=== PATIENT | female | born 1995 | race African-American/Black ===

== ENCOUNTER 2019-03-27 12:10 | Inpatient (IN) ==
[2019-03-27] MEDS ORDERED: LACTATED RINGERS 1,000 ML IV ONE (12:18)
[2019-03-27] MEDS ORDERED: OXYTOCIN/LR 20 UNIT/1,000 ML BAG IV SCH (12:30)
[2019-03-27] MEDS ORDERED: ONDANSETRON 4 MG/2 ML VIAL IV PRN (12:31)
[2019-03-27] MEDS ORDERED: BUTORPHANOL 2 MG/ML VIAL IV PRN (12:31)
[2019-03-27] MEDS ORDERED: MEPERIDINE 50 MG/1 ML VIAL IV PRN (12:31)
[2019-03-27 12:52] LABS: Basophils % 0.2 % (0.0-0.8); Eosinophils # 0.1 10*3/uL (0.0-0.87); Eosinophils % 0.4 % (0.00-10.9); Hematocrit 39.1 VOL% (35.7-47.0); Hemoglobin 12.6 GM/DL (12.0-16.0); Immature Granulocytes % 1.7 %; Immature Granulocytes Absolute 0.23 #; Lymphocytes # 1.5 10*3/uL (1.4-4.0); Lymphocytes % 10.5 % (21.3-54.2); Mean Corpuscular HGB Conc 32.2 GM/DL (32-36); Mean Corpuscular Volume 89.9 FL (87-102); Mean Platelet Volume 12.2 FL (9.6-12.0); Monocytes % 5.5 % (1.7-12.7); Neutrophils % 81.7 % (38.7-73.9); Platelet Count 160 T/CUMM (130-400); Red Blood Count 4.35 MC/CUMM (3.8-5.5); Red Cell Distribution Width 14.2 % (9.3-17.3); White Blood Count 13.9 T/CUMM (4-12)
[2019-03-27] MEDS ORDERED: ONDANSETRON 4 MG/2 ML VIAL IV ONE (12:56)
[2019-03-27] MEDS ORDERED: FAMOTIDINE 20 MG/2 ML VIAL IV ONE (12:56)
[2019-03-27] MEDS ORDERED: hydrOXYzine HCL 25 MG/1 ML VIAL IM PRN (12:56)
[2019-03-27] MEDS ORDERED: ePHEDrine 50 MG/ML AMP IV PRN (12:56)
[2019-03-27] MEDS ORDERED: PROMETHAZINE 25 MG/1 ML VIAL IM ONE (12:56)
[2019-03-27] MEDS ORDERED: NALOXONE 0.4 MG/ML VIAL IV PRN (12:56)
[2019-03-27] MEDS ORDERED: CITRIC ACID/SODIUM CITRATE 30 ML UDCUP PO ONE (12:56)
[2019-03-27] MEDS ORDERED: diphenhydrAMINE 50 MG/1 ML VIAL IV PRN ×2 (12:56)
[2019-03-27] MEDS ORDERED: LACTATED RINGERS 1,000 ML IV SCH (13:00)
[2019-03-27] MEDS: LACTATED RINGERS 1,000 ML IV SCH ×2 (13:26→19:51)
[2019-03-27] MEDS: fentaNYL 2 MCG/ROPIV 0.2% EPID 100 ML EPIDURAL SCH ×2 (14:11→21:40)
[2019-03-27 15:57] LABS: Apearance,Urine CLEAR (Clear); Bacteria,Urine Occasional /HPF (Few); Bilirubin,Urine Negative (Negative); Blood, Urine Negative (Negative); Glucose,Urine (UA) Negative (Negative); Ketones,Urine Negative (Negative); Mucus,Urine Occasional /LPF (Occasional); Nitrite,Urine Negative (Negative); Protein,Urine Negative; RBC,Urine 5 /HPF (0-4); Squamous Epithelial Cell,Urine Occasional /HPF (0-10); Urine Color Straw (Yellow); Urine Specific Gravity 1.013 (1.001-1.035); Urine Urobilinogen < 2.0 EU/DL (0.2-1.0); WBC,Urine 2 /HPF (0-6)
[2019-03-27] MEDS ORDERED: CARBOPROST TROMETHAMINE 250 MCG/ML AMP IM ONE (23:50)
[2019-03-27] MEDS ORDERED: TRANEXAMIC ACID 1,000 MG/10 ML VIAL ONE (23:50)
[2019-03-27] MEDS ORDERED: OXYTOCIN/LR 20 UNIT/1,000 ML BAG IV ONE (23:50)
[2019-03-27] MEDS ORDERED: miSOPROStoL 200 MCG TABLET ONE (23:50)
[2019-03-27] MEDS ORDERED: METHYLERGONOVINE 0.2 MG/1 ML AMP ONE (23:50)
[2019-03-27] MEDS ORDERED: SODIUM CHLORIDE 0.9% 0 ML IV ONE (23:51)
[2019-03-28] MEDS ORDERED: ACETAMINOPHEN 325 MG TABLET PO PRN (00:34)
[2019-03-28] MEDS ORDERED: oxyCODONE/ACETAMINOPHEN 5-325 MG TABLET PO PRN (00:34)
[2019-03-28] MEDS ORDERED: BISACODYL 10 MG SUPP RECTAL PRN (00:34)
[2019-03-28] MEDS ORDERED: DIPH/TET/ACEL PERT BOOSTER VACCINE 0.5 ML VIAL IM ONE (00:34)
[2019-03-28] MEDS ORDERED: OXYTOCIN/LR 20 UNIT/1,000 ML BAG IV ONE (00:34)
[2019-03-28] MEDS ORDERED: LANOLIN 50% CREAM 0.3 OZ TUBE TOP PRN (00:34)
[2019-03-28] MEDS ORDERED: BENZOCAINE 20%/MENTHOL 0.5% SPRAY 56 GM CAN TOP PRN (00:34)
[2019-03-28] MEDS ORDERED: WITCH HAZEL PADS 100/JAR TOP PRN (00:34)
[2019-03-28] MEDS ORDERED: RHO(D) IMMUNE GLOBULIN 300 MCG SYRINGE IM ONE (00:34)
[2019-03-28] MEDS ORDERED: HYDROCORTISONE 2.5% RECTAL CREAM 30 GM TUBE TOP PRN (00:34)
[2019-03-28] MEDS ORDERED: ONDANSETRON 4 MG/2 ML VIAL IV PRN (00:34)
[2019-03-28] MEDS ORDERED: MEASLES/MUMPS/RUBELLA VACCINE 0.5 ML VIAL SUBCUT ONE (00:34)
[2019-03-28 01:07] LABS: Cord Arterial Blood HCO3 21.3 MMOL/L
[2019-03-28 01:10] LABS: Cord Venous Blood HCO3 21.8 MMOL/L; Cord Venous Blood PCO2 44.4 MMHG; Cord Venous Blood PO2 23.2
[2019-03-28] MEDS: IBUPROFEN 800 MG TABLET PO PRN ×3 (02:43→20:28)
[2019-03-28 06:06] LABS: Basophils # 0.1 10*3/uL (0.0-0.2); Basophils % 0.2 % (0.0-0.8); Hematocrit 33.8 VOL% (35.7-47.0); Immature Granulocytes % 2.1 %; Immature Granulocytes Absolute 0.71 #; Lymphocytes # 0.8 10*3/uL (1.4-4.0); Lymphocytes % 2.5 % (21.3-54.2); Mean Corpuscular HGB Conc 32.5 GM/DL (32-36); Mean Corpuscular Volume 90.4 FL (87-102); Mean Platelet Volume 12.2 FL (9.6-12.0); Monocytes % 5.1 % (1.7-12.7); Neutrophils % 90.1 % (38.7-73.9); Platelet Count 142 T/CUMM (130-400); Red Blood Count 3.74 MC/CUMM (3.8-5.5); Red Cell Distribution Width 14.3 % (9.3-17.3); White Blood Count 33.8 T/CUMM (4-12)
[2019-03-28 06:46] LABS: Band Neutrophils 10 % (0-10); Lymphocytes 2 % (20-55); Microcytosis 1+; Segmented Neutrophils 86 % (50-85); Total Cells Counted 100
[2019-03-28 06:47] LABS: Hypochromasia 1+; Platelet Estimate Adequate
[2019-03-28] MEDS: DOCUSATE SODIUM 100 MG CAPSULE PO SCH ×2 (10:33→20:27)
[2019-03-28] MEDS: oxyCODONE/ACETAMINOPHEN 5-325 MG TABLET PO PRN (20:27)
[2019-03-29] MEDS: oxyCODONE/ACETAMINOPHEN 5-325 MG TABLET PO PRN (02:24)
[2019-03-29] MEDS: IBUPROFEN 800 MG TABLET PO PRN ×2 (02:24→08:47)
[2019-03-29 07:57] VITALS: BP 110/71
[2019-03-29] MEDS: DOCUSATE SODIUM 100 MG CAPSULE PO SCH (08:47)
== END 2019-03-29 12:50 | disposition home or self-care (01) | DRG 807 ==
LOC: N.LDOUT 12:10 → N.LD 12:12 → N.OB 03-28 02:25
PROVIDERS: ADMIT Obstetrics & Gynecology; ATTEND Obstetrics & Gynecology